=== PATIENT | female | born 1940 | race Caucasian/White ===

== ENCOUNTER 2021-12-28 15:57 | Outpatient (REF) | payer MEDICARE, MEDICAID, SELFPAY ==
--- NOTE | ~2021-12-28 | XR_ITS ---
EXAMINATION: XR ANKLE, RIGHT CLINICAL INFORMATION: Sprain COMPARISON: None TECHNIQUE: AP, lateral, and mortise views of the right ankle. FINDINGS: Soft tissue swelling along the lateral aspect of the ankle. No visible acute fracture or dislocation. Ankle mortise is maintained. Joint spaces are maintained. Talar dome appears intact. Base of fifth metatarsal is intact. XR/XR ankle RT min 3V IMPRESSION: Lateral ankle soft tissue swelling. No visible acute fracture or dislocation.
== END 2021-12-28 15:58 | disposition home or self-care (01) ==
LOC: HO.HMGCX 15:57
PROVIDERS: PCP Internal Medicine; Visit Provider Physician Assistant
DX: S93.401A Sprain of unspecified ligament of right ankle, initial encounter (principal); X58.XXXA Exposure to other specified factors, initial encounter; Y93.9 Activity, unspecified; Y92.9 Unspecified place or not applicable; Y99.8 Other external cause status
CPT/HCPCS: 73610